=== PATIENT | female | born 1965 | race Two or more races ===

== ENCOUNTER 2022-10-07 10:17 | Emergency (ER) | payer OTHER ==
[~2022-10-07] VITALS: Ht 165.1 cm; Wt 70.8 kg
[2022-10-07] MEDS ORDERED: MUPIROCIN1 G1 TOP (13:28)
[2022-10-07] MEDS ORDERED: AMOX-CLAV 875-1 EACH PO (13:28)
== END 2022-10-07 13:43 | disposition home or self-care (01) ==
LOC: ER 10:17
DX: L02.213 Cutaneous abscess of chest wall (principal)